=== PATIENT | male | born 1930 | race Caucasian/White ===

== ENCOUNTER 2017-04-26 12:14 | Emergency (ER) | payer OTHER, MEDICAID ==
[~2017-04-26] VITALS: Ht 162.6 cm; Wt 59.6 kg
[~2017-04-26 12:14] MED LIST: COR200 PO; HYT2 PO; VIC PO
[2017-04-26 13:10] LABS: BASOPHIL % 0.4 % (0-2); PLATELET COUNT 192 x10^3mcL (130-400)
[2017-04-26 13:18] LABS: RED CELL DISTRIBUTION WIDTH 15.9 % (11.5-14.5)
[2017-04-26 13:26] LABS: CALCIUM 8.7 mg/dL (8.5-10.1); CARBON DIOXIDE 26.4 mmol/L (21-32); CHLORIDE SERUM 106 mmol/L (98-107); CREATININE SERUM 1.1 mg/dL (0.7-1.3); GLUCOSE SERUM 98 mg/dL (74-106); SODIUM SERUM 138 mmol/L (136-145)
[2017-04-26 13:30] LABS: ALKALINE PHOSPHATASE 70 U/L (46-116); ALT/SGPT 17 U/L (16-63); AST/SGOT 19 U/L (15-37); BILIRUBIN TOTAL 0.3 mg/dL (0.20-1.00); TOTAL PROTEIN, SERUM 7.4 g/dL (6.4-8.2)
[2017-04-26 13:33] LABS: ALBUMIN 3.3 g/dL (3.4-5.0)
[2017-04-26 15:56] VITALS: BP 158/63
== END 2017-04-26 15:56 | disposition home or self-care (01) ==
LOC: ED 12:14
PROVIDERS: Specialist
DX: M51.35 Other intervertebral disc degeneration, thoracolumbar region (principal); M48.05 Spinal stenosis, thoracolumbar region
CPT/HCPCS: 36415; J1885

== ENCOUNTER 2017-11-11 21:22 | Inpatient (IN) | payer OTHER, MEDICAID ==
[~2017-11-11] VITALS: Ht 160 cm; Wt 58.5 kg
[2017-11-11 21:33] VITALS: Ht 160 cm; Wt 58.5 kg
[2017-11-11 22:29] LABS: UA SPECIFIC GRAVITY 1.015 (1.005-1.035); microscopic required? YES; urine erythrocyte 3+ (NEGATIVE)
[2017-11-11 23:50] LABS: BASOPHIL % 0.2 % (0-2); PLATELET COUNT 167 x10^3mcL (130-400)
[2017-11-11 23:52] LABS: RED CELL DISTRIBUTION WIDTH 15.7 % (11.5-14.5)
[2017-11-11 23:57] LABS: CALCIUM 8.7 mg/dL (8.5-10.1); CARBON DIOXIDE 26.5 mmol/L (21-32); CHLORIDE SERUM 101 mmol/L (98-107); CREATININE SERUM 1.1 mg/dL (0.7-1.3); GLUCOSE SERUM 92 mg/dL (74-106); SODIUM SERUM 138 mmol/L (136-145)
[2017-11-12 00:02] LABS: ALBUMIN 3.7 g/dL (3.4-5.0); ALKALINE PHOSPHATASE 61 U/L (46-116); ALT/SGPT 18 U/L (16-63); AST/SGOT 19 U/L (15-37); BILIRUBIN TOTAL 0.5 mg/dL (0.20-1.00); TOTAL PROTEIN, SERUM 7.6 g/dL (6.4-8.2)
[2017-11-12 02:15] VITALS: BP 156/61
[2017-11-12 02:41] LABS: MAGNESIUM 2.1 mg/dL (1.8-2.4); PHOSPHOROUS 3.3 mg/dL (2.5-4.9)
[2017-11-12 02:51] LABS: FREE T4 1.12 ng/dL (0.76-1.46); FREE THYROXINE INDEX 2.7 ug/dL (1.4-4.5); T4(THYROXINE) 7.4 ug/dL (4.7-13.3)
[2017-11-12 03:03] LABS: CHOLESTEROL/HDL RATIO 2.7
[2017-11-12 03:04] LABS: T3 TOTAL 0.85 ng/mL
[2017-11-12 05:20] VITALS: BP 132/49
[2017-11-12 06:42] LABS: BASOPHIL % 0.3 % (0-2); PLATELET COUNT 150 x10^3mcL (130-400)
[2017-11-12 06:44] LABS: RED CELL DISTRIBUTION WIDTH 15.8 % (11.5-14.5)
[2017-11-12 07:08] LABS: CALCIUM 8.3 mg/dL (8.5-10.1); CARBON DIOXIDE 25.5 mmol/L (21-32); CHLORIDE SERUM 107 mmol/L (98-107); CREATININE SERUM 0.9 mg/dL (0.7-1.3); GLUCOSE SERUM 93 mg/dL (74-106); SODIUM SERUM 141 mmol/L (136-145)
[2017-11-12 10:03] VITALS: BP 146/55
[2017-11-12 14:47] VITALS: BP 112/64
[2017-11-12 17:59] VITALS: BP 135/52
[2017-11-12 20:37] VITALS: BP 124/47
[2017-11-13 05:19] VITALS: BP 151/54
[2017-11-13 06:59] LABS: BASOPHIL % 0.4 % (0-2); PLATELET COUNT 178 x10^3mcL (130-400)
[2017-11-13 07:04] LABS: CALCIUM 8.3 mg/dL (8.5-10.1); CARBON DIOXIDE 23.7 mmol/L (21-32); CHLORIDE SERUM 105 mmol/L (98-107); CREATININE SERUM 0.9 mg/dL (0.7-1.3); GLUCOSE SERUM 99 mg/dL (74-106); POTASSIUM SERUM 4.3 mmol/L (3.5-5.1); SODIUM SERUM 138 mmol/L (136-145)
[2017-11-13 08:19] LABS: IRON 52 ug/dL (65-170)
[2017-11-13 08:20] LABS: TOTAL IRON BINDING CAPACITY 217 ug/dL (250-450)
[2017-11-13 09:21] VITALS: BP 151/65
[2017-11-13 17:31] VITALS: BP 146/43
[2017-11-13 21:20] VITALS: BP 126/48
[2017-11-14 06:19] LABS: BASOPHIL % 0.4 % (0-2); PLATELET COUNT 172 x10^3mcL (130-400)
[2017-11-14 06:23] LABS: RED CELL DISTRIBUTION WIDTH 15.7 % (11.5-14.5)
[2017-11-14 06:25] VITALS: BP 142/57
[2017-11-14 07:09] LABS: CALCIUM 8.8 mg/dL (8.5-10.1); CHLORIDE SERUM 106 mmol/L (98-107); CREATININE SERUM 0.8 mg/dL (0.7-1.3); GLUCOSE SERUM 90 mg/dL (74-106); POTASSIUM SERUM 4.3 mmol/L (3.5-5.1); SODIUM SERUM 140 mmol/L (136-145)
[2017-11-14 09:45] VITALS: BP 164/51
[2017-11-14] MEDS ORDERED: LEVAQUIN750 MG PO (09:56)
[2017-11-14] MEDS ORDERED: LAC PO (09:56)
[2017-11-14 10:09] VITALS: BP 164/51
== END 2017-11-14 12:45 | disposition home or self-care (01) | DRG 871 ==
LOC: ED 21:22 → MU 11-12 01:07 → DU 11-12 01:07 → MU 11-12 12:38
PROVIDERS: Emergency Medicine; Family Medicine
DX: A41.9 Sepsis, unspecified organism (principal); N17.0 Acute kidney failure with tubular necrosis; G93.41 Metabolic encephalopathy; N39.0 Urinary tract infection, site not specified; B96.20 Unspecified Escherichia coli [E. coli] as the cause of diseases classified elsewhere; R31.9 Hematuria, unspecified; C61 Malignant neoplasm of prostate; D64.9 Anemia, unspecified; E78.5 Hyperlipidemia, unspecified; Z68.22 Body mass index [BMI] 22.0-22.9, adult; Z85.46 Personal history of malignant neoplasm of prostate; Z92.3 Personal history of irradiation; Z79.899 Other long term (current) drug therapy; Z79.891 Long term (current) use of opiate analgesic
CPT/HCPCS: 84439; J0696; J7030; Q0092